=== PATIENT | female | born 1970 | race Two or more races ===

== ENCOUNTER 2018-01-20 10:21 | Emergency (ER) | payer MEDICAID ==
--- NOTE | 2018-01-20 10:39 | EDPHY ---
H & P Time Seen by Provider: 01/20/18 10:29 HPI/ROS: CHIEF COMPLAINT: Syncope Limitations: Patient not speaking; history through EMS HISTORY OF PRESENT ILLNESS: 47-year-old female presents after a syncopal episode. She was standing and doing assembly line work. 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 She began talking with a friend, became very emotional and tearful and then had a syncopal episode. Since the syncopal episode, she has appeared agitated and is not speaking. Blood sugar by EMS greater than 300. REVIEW OF SYSTEMS: Unable to obtain - Physical Exam Exam: General Appearance: Alert, tearful, anxious Eyes: Pupils equal and round, conjunctival injection ENT, Mouth: Mucous membranes moist Neck: Normal inspection Respiratory: Lungs are clear to auscultation anteriorly Cardiovascular: Regular rate and rhythm Gastrointestinal: Abdomen is soft and nontender Neurological: Alert, looks at me when I speak and moans, but does not answer questions, moves all extremities Skin: Warm and dry Extremities: Normal inspection Psychiatric: Anxious Constitutional: Initial Vital Signs Temperature (C) 36.8 C 01/20/18 10:43 Heart Rate 77 01/20/18 10:43 Respiratory Rate 16 01/20/18 10:43 Blood Pressure 130/99 H 01/20/18 10:43 O2 Sat (%) 96 01/20/18 10:43 O2 Delivery Mode Room Air Allergies/Adverse Reactions: No Known Allergies Allergy (Unverified 01/20/18 10:55) Home Medications: Medication Instructions Recorded Metformin HCl 01/20/18 Medical Decision Making - Diagnostics EKG Interpretation: EKG interpreted by me reveals normal sinus rhythm, rate 70, diffuse nonspecific T-wave changes. Interpretation: Borderline EKG ED Course/Re-evaluation: Ativan 0.5 mg IV given. 11:15 a.m.-now speaking, starting to feel better, has a history of diabetes. Elevated blood sugar discussed. On discharge, patient felt much better and able to walk with a steady gait. Will be discharged home with her . Likely syncopal episode secondary to emotional distress. Differential Diagnosis: Differential diagnosis includes though is not limited to cardiac dysrhythmia, CVA, TIA, GI bleed, sepsis, hypoglycemia. - Data Points Laboratory Results: Laboratory Results 01/20/18 10:30 01/20/18 10:30 01/20/18 01/20/18 01/20/18 10:30 10:30 10:30 WBC 8.08 10^3/uL 10^3/uL (3.80-9.50) RBC 5.07 10^6/uL 10^6/uL (4.18-5.33) Hgb 14.4 g/dL g/dL (12.6-16.3) Hct 42.3 % % (38.0-47.0) MCV 83.4 fL fL (81.5-99.8) MCH 28.4 pg pg (27.9-34.1) MCHC 34.0 g/dL g/dL (32.4-36.7) RDW 14.2 % % (11.5-15.2) Plt Count 249 10^3/uL 10^3/uL (150-400) MPV 11.1 fL fL (8.7-11.7) Neut % (Auto) 49.1 % % (39.3-74.2) Lymph % (Auto) 43.4 % % (15.0-45.0) [place] % (Auto) 4.8 % % (4.5-13.0) Eos % (Auto) 1.0 % % (0.6-7.6) Baso % (Auto) 0.5 % % (0.3-1.7) Nucleat RBC Rel Count 0.0 % % (0.0-0.2) Absolute Neuts (auto) 3.96 10^3/uL 10^3/uL (1.70-6.50) Absolute Lymphs (auto) 3.51 10^3/uL H 10^3/uL (1.00-3.00) Absolute Monos (auto) 0.39 10^3/uL 10^3/uL (0.30-0.80) Absolute Eos (auto) 0.08 10^3/uL 10^3/uL (0.03-0.40) Absolute Basos (auto) 0.04 10^3/uL 10^3/uL (0.02-0.10) Absolute Nucleated RBC 0.00 10^3/uL 10^3/uL (0-0.01) Immature Gran % 1.2 % H % (0.0-1.1) Immature Gran # 0.10 10^3/uL 10^3/uL (0.00-0.10) Sodium 136 mEq/L mEq/L (135-145) Potassium 4.3 mEq/L mEq/L (3.3-5.0) Chloride 100 mEq/L mEq/L (97-110) Carbon Dioxide 23 mEq/l mEq/l (22-31) Anion Gap 13 mEq/L mEq/L (6-14) BUN 12 mg/dL mg/dL (7-23) Creatinine 0.5 mg/dL L mg/dL (0.6-1.0) Estimated GFR > 60 Glucose 292 mg/dL H mg/dL (70-100) Calcium 9.5 mg/dL mg/dL (8.5-10.4) Beta HCG, Qual NEGATIVE Medications Given: Discontinued Medications Lorazepam (Ativan Injection) 0.5 mg IVP EDNOW ONE Stop: 01/20/18 10:43 Last Admin: 01/20/18 10:55 Dose: 0.5 mg Departure - Departure Disposition: Home, Routine, Self-Care Clinical Impression: Syncope Qualifiers: 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 Follow up with your primary care physician. El nivel de [place] azucar esta corriendo alto hoy. Hacer leni de seguimiento con [place] de cuidado primario. Referrals: [facility],. [Clinic] - As per Instructions Print Language: Swedish
[2018-01-20] MEDS ORDERED: LORazepam 2 MG/ML INJ IVP ONE (10:42)
[2018-01-20 10:50] LABS: PLATELET COUNT 249 10^3/uL (150-400)
[2018-01-20 13:21] VITALS: BP 122/69
--- NOTE | 2018-01-20 14:27 | CPEKG ---
Test Reason : OPEN Blood Pressure : / mmHG Vent. Rate : 070 BPM Atrial Rate : 071 BPM P-R Int : 156 ms QRS Dur : 093 ms QT Int : 419 ms P-R-T Axes : 028 064 016 degrees QTc Int : 453 ms Sinus rhythm Borderline T wave abnormalities Confirmed by Ashley Arnold ([id number]) on 01/20/2018 2:27:14 PM Referred By: Confirmed By:Ashley Arnold
== END 2018-01-20 13:19 | disposition home or self-care (01) ==
DX: R55 Syncope and collapse (principal); F48.8 Other specified nonpsychotic mental disorders; E11.9 Type 2 diabetes mellitus without complications
CPT/HCPCS: 96374; J2060